=== PATIENT | female | born 1945 | race Caucasian/White ===

== ENCOUNTER 2024-03-27 07:51 | Outpatient (CLI) | payer OTHER, SELFPAY | END 2024-03-27 07:52 | disposition home or self-care (01) | LOC: WOUND 07:53 | PROVIDERS: Visit Provider Nurse Practitioner Family | DX: I87.2 Venous insufficiency (chronic) (peripheral) (principal); I83.92 Asymptomatic varicose veins of left lower extremity; L97.328 Non-pressure chronic ulcer of left ankle with other specified severity | CPT/HCPCS: 11042; G0463 ==

== ENCOUNTER 2024-04-03 07:55 | Outpatient (CLI) | payer OTHER, SELFPAY | END 2024-04-03 07:56 | disposition home or self-care (01) | LOC: WOUND 07:55 | PROVIDERS: Visit Provider Nurse Practitioner Family | DX: I87.2 Venous insufficiency (chronic) (peripheral) (principal); L97.322 Non-pressure chronic ulcer of left ankle with fat layer exposed; I83.92 Asymptomatic varicose veins of left lower extremity | CPT/HCPCS: 11042 ==

== ENCOUNTER 2024-04-10 08:15 | Outpatient (CLI) | payer OTHER, SELFPAY | END 2024-04-10 08:16 | disposition home or self-care (01) | LOC: WOUND 04-14 11:39 | PROVIDERS: Visit Provider Nurse Practitioner Family | DX: I87.2 Venous insufficiency (chronic) (peripheral) (principal); L97.322 Non-pressure chronic ulcer of left ankle with fat layer exposed; I83.92 Asymptomatic varicose veins of left lower extremity | CPT/HCPCS: 11042 ==

== ENCOUNTER 2024-05-01 08:11 | Outpatient (CLI) | payer OTHER, SELFPAY | END 2024-05-01 08:12 | disposition home or self-care (01) | LOC: WOUND 08:11 | PROVIDERS: Visit Provider Nurse Practitioner Family | DX: I87.312 Chronic venous hypertension (idiopathic) with ulcer of left lower extremity (principal); I87.2 Venous insufficiency (chronic) (peripheral); L97.322 Non-pressure chronic ulcer of left ankle with fat layer exposed | CPT/HCPCS: 11042 ==

== ENCOUNTER 2024-05-08 10:56 | Outpatient (CLI) | payer OTHER, SELFPAY | END 2024-05-08 10:57 | disposition home or self-care (01) | LOC: WOUND 10:56 | PROVIDERS: Visit Provider Nurse Practitioner Family | DX: I87.312 Chronic venous hypertension (idiopathic) with ulcer of left lower extremity (principal); I87.2 Venous insufficiency (chronic) (peripheral); L97.322 Non-pressure chronic ulcer of left ankle with fat layer exposed | CPT/HCPCS: 15271; Q4101 ==

== ENCOUNTER 2024-05-15 10:55 | Outpatient (CLI) | payer OTHER, MEDICARE, SELFPAY | END 2024-05-15 10:56 | disposition home or self-care (01) | LOC: WOUND 10:56 | PROVIDERS: Visit Provider Nurse Practitioner Family | DX: I87.312 Chronic venous hypertension (idiopathic) with ulcer of left lower extremity (principal); I87.2 Venous insufficiency (chronic) (peripheral); L97.822 Non-pressure chronic ulcer of other part of left lower leg with fat layer exposed | CPT/HCPCS: G0463 ==

== ENCOUNTER 2024-05-22 10:51 | Outpatient (CLI) | payer OTHER, SELFPAY | END 2024-05-22 10:52 | disposition home or self-care (01) | LOC: WOUND 10:51 | PROVIDERS: Visit Provider Nurse Practitioner Family | DX: I87.312 Chronic venous hypertension (idiopathic) with ulcer of left lower extremity (principal); I87.2 Venous insufficiency (chronic) (peripheral); L97.322 Non-pressure chronic ulcer of left ankle with fat layer exposed | CPT/HCPCS: 15271; Q4101 ==

== ENCOUNTER 2024-05-29 10:56 | Outpatient (CLI) | payer OTHER, SELFPAY | END 2024-05-29 10:57 | disposition home or self-care (01) | LOC: WOUND 10:56 | PROVIDERS: Visit Provider Nurse Practitioner Family | DX: I87.312 Chronic venous hypertension (idiopathic) with ulcer of left lower extremity (principal); I87.2 Venous insufficiency (chronic) (peripheral); L97.321 Non-pressure chronic ulcer of left ankle limited to breakdown of skin | CPT/HCPCS: 97597 ==

== ENCOUNTER 2024-06-05 12:38 | Outpatient (CLI) | payer OTHER, SELFPAY | END 2024-06-05 12:39 | disposition home or self-care (01) | LOC: WOUND 12:38 | PROVIDERS: Visit Provider Nurse Practitioner Family | DX: I87.2 Venous insufficiency (chronic) (peripheral) (principal); I83.92 Asymptomatic varicose veins of left lower extremity; L97.828 Non-pressure chronic ulcer of other part of left lower leg with other specified severity | CPT/HCPCS: G0463 ==